=== PATIENT | male | born 1955 | race Caucasian/White ===

== ENCOUNTER 2016-07-21 11:03 | Inpatient (IN) | payer MEDICAID ==
[~2016-07-21] VITALS: Ht 175.3 cm; Wt 138.3 kg
--- NOTE | 2016-07-21 11:20 | NUR ---
PT BIB C/O BLOODY SPUTUM X5-6 MONTHS, ALSO C/O MILD SOB HOWEVER RESP APPEARS EVEN UNLABORED. DENIES PAIN. PT C/O ANXIETY REGARDING BLOODY SPUTUM AND REPORTS THAT HE DOES NOT GO TO A DOCTOR. SKIN WARM NONDIAPHORETIC. INER BED 09 ON MONITOR.
[2016-07-21 11:28] LABS: BASOPHILS % (AUTO) 0.2 % (0.0-2.0); EOSINOPHILS # (AUTO) 0.1 /CMM (0.0-0.7); EOSINOPHILS % (AUTO) 0.5 % (0.0-6.0); HEMATOCRIT 45 % (39-51); LYMPHOCYTES # (AUTO) 1.4 /CMM (0.8-4.8); LYMPHOCYTES % (AUTO) 13.6 % (20.0-44.0); MEAN CORPUSCULAR HEMOGLOBIN 27 PG (26.0-33.0); MEAN CORPUSCULAR HGB CONC 33 g/dl (31.0-36.0); MEAN CORPUSCULAR VOLUME 81 fL (80-96); MONOCYTES # (AUTO) 0.7 /CMM (0.1-1.30); MONOCYTES % (AUTO) 6.7 % (2.0-12.0); NEUTROPHILS # (AUTO) 8.3 /CMM (1.8-8.9); PLATELET COUNT (AUTO) 395 /CMM (150-450); RDW COEFFICIENT OF VARIATION 12.4 (11.5-15.0); RED BLOOD CELL COUNT(AUTO) 5.55 MIL/uL (4.5-6.0); WHITE BLOOD COUNT (AUTO) 10.5 K/uL (4.3-11.0)
[2016-07-21 11:37] LABS: CALCIUM, SERUM 9.1 mg/dL (8.5-10.1); POTASSIUM 4.3 mmol/L (3.5-5.1)
[2016-07-21 11:41] LABS: INR 1.03 (0.87-1.13); PROTHROMBIN TIME 10.7 SECS (9.5-12.7)
[2016-07-21 11:46] LABS: TROPONIN I 0.165 ng/mL (0.00-0.056)
[2016-07-21] MEDS ORDERED: ASPIRIN 325 MG TABLET ONE (13:25)
[2016-07-21] MEDS ORDERED: METOPROLOL TARTRATE 25 MG TABLET ONE (13:25)
[2016-07-21] MEDS ORDERED: ASPIRIN 325 MG TABLET PO ONE (13:30)
[2016-07-21] MEDS ORDERED: METOPROLOL TARTRATE 25 MG TABLET PO ONE (13:30)
--- NOTE | 2016-07-21 13:51 | NUR ---
PT RESTING QUIETLY IN BED, NAD NOTED, ALL NEEDS ATTENDED TO.
[2016-07-21] MEDS ORDERED: HYDROCODONE/APAP 5/325MG 1 EACH TABLET PO PRN (14:00)
[2016-07-21] MEDS ORDERED: MAG HYDROX/AL HYDROX/SIMETH 30 ML UDC PO PRN (14:00)
[2016-07-21] MEDS ORDERED: ALBUTEROL FS 2.5 MG/0.5 ML VIAL.NEB NEB PRN (14:00)
[2016-07-21] MEDS ORDERED: IPRATROPIUM NEB FS 0.5 MG/2.5 ML AMPUL.NEB NEB PRN (14:00)
[2016-07-21] MEDS ORDERED: MAGNESIUM HYDROXIDE 30 ML UDC PO PRN (14:00)
[2016-07-21] MEDS ORDERED: Z GUARD REMEDY 2 OZ OINT TP PRN (14:00)
[2016-07-21] MEDS ORDERED: MORPHINE SULFATE INJ 2 MG/ML DISP.SYRIN IV PRN (14:00)
[2016-07-21] MEDS ORDERED: ZOLPIDEM TARTRATE 5 MG TABLET PO PRN (14:00)
[2016-07-21] MEDS ORDERED: ONDANSETRON HCL/PF 4 MG/2 ML VIAL IVP PRN (14:00)
[2016-07-21] MEDS ORDERED: ACETAMINOPHEN 325 MG TABLET PO PRN (14:00)
[2016-07-21] MEDS ORDERED: AMLODIPINE BESYLATE 5 MG TABLET ONE (14:06)
[2016-07-21] MEDS ORDERED: AMLODIPINE BESYLATE 5 MG TABLET PO ONE (14:30)
--- NOTE | 2016-07-21 14:57 | NUR ---
REPORT GIVEN TO MIGUEL RN FOR ADMISSION
[2016-07-21] MEDS: ENOXAPARIN SODIUM 40 MG/0.4 ML DISP.SYRIN SQ SCH (15:00)
--- NOTE | 2016-07-21 15:18 | NUR ---
PT TRANSPORTED TO [facility] IN STABLE CONDITION VIA ACLS PROTOCOL
--- NOTE | 2016-07-21 17:18 | NUR ---
PRETTY ZAPATA RN LOVEGONZALEZX IS ALREADY ON HOLD AND WORKING ON GETTING CONSENTS SIGN
--- NOTE | 2016-07-21 19:15 | NUR ---
RN NOTE PT AAOX4, NO C/O CP OR SOB. BREATHING EVEN AND NON-LABORED ON ROOM AIR. TELE SHOWS SR WITH BBB. LFA INTACT AND PATENT. PT AWARE OF BEING NPO PAST MIDNIGHT FOR PROCEDURE IN AM. WILL OBTAIN CONSNT. FAMILY AT BEDSIDE, CALL LIGHT IN REACH. WILL CONT TO MONITOR.
[2016-07-21 20:00] VITALS: BP 141/80
[2016-07-21] MEDS: NITROGLYCERIN 30 GM TUBE TP SCH (21:13)
[2016-07-22] VITALS: BP 150/87
--- NOTE | 2016-07-22 01:57 | NUR ---
RN NOTE NO DISTRESS AT THIS TIME. PT RESTING WITH EYES CLOSED. WILL CONT TO MONITOR.
[2016-07-22 04:00] VITALS: BP 135/83
--- NOTE | 2016-07-22 06:09 | NUR ---
RN NOTE NO SIGNIFICANT CHANGES THIS SHIFT. PT AAOX4, NO C/O OF PAIN OR DISCOMFORT AT THIS TIME. BREATHING EVEN AND NON-LABORED ON ROOM AIR. LFA IAP H/L. HOB ELEVATED 30 DEGREES. PT NPO STATUS, FOR THORACENTESIS AND LUNG BX TODAY. CALL LIGHT IN REACH, WILL F/U WITH DAY SHIFT FOR FREEDOM. Addendum: 07/22/16 at 0612 by SHANTA SHELBY RN TELE SHOWS SR BBB WITH PVC'S
[2016-07-22 06:54] LABS: BASOPHILS % (AUTO) 0.3 % (0.0-2.0); EOSINOPHILS # (AUTO) 0.1 /CMM (0.0-0.7); EOSINOPHILS % (AUTO) 0.6 % (0.0-6.0); HEMATOCRIT 42 % (39-51); HEMOGLOBIN 13.8 g/dL (13.5-17.5); LYMPHOCYTES # (AUTO) 1.4 /CMM (0.8-4.8); LYMPHOCYTES % (AUTO) 15.1 % (20.0-44.0); MEAN CORPUSCULAR HEMOGLOBIN 27 PG (26.0-33.0); MEAN CORPUSCULAR HGB CONC 33 g/dl (31.0-36.0); MEAN CORPUSCULAR VOLUME 81 fL (80-96); MONOCYTES # (AUTO) 0.9 /CMM (0.1-1.30); MONOCYTES % (AUTO) 8.9 % (2.0-12.0); NEUTROPHILS # (AUTO) 7.2 /CMM (1.8-8.9); NEUTROPHILS % (AUTO) 75.1 % (43.0-81.0); PLATELET COUNT (AUTO) 389 /CMM (150-450); RDW COEFFICIENT OF VARIATION 12.8 (11.5-15.0); RED BLOOD CELL COUNT(AUTO) 5.21 MIL/uL (4.5-6.0); WHITE BLOOD COUNT (AUTO) 9.6 K/uL (4.3-11.0)
[2016-07-22 07:07] LABS: ALBUMIN 2.8 g/dL (3.4-5.0); BILIRUBIN,TOTAL 0.5 mg/dL (0.2-1.0); INR 0.97 (0.87-1.13); MAGNESIUM 1.7 mg/dL (1.8-2.4); PHOSPHORUS 3.4 mg/dL (2.5-4.9); POTASSIUM 3.8 mmol/L (3.5-5.1); PROTHROMBIN TIME 10.4 SECS (9.5-12.7); TROPONIN I 0.147 ng/mL (0.00-0.056)
--- NOTE | 2016-07-22 07:30 | NUR ---
MS NURSE'S OPENING NOTES RECEIVED REPORT FROM NIGHT NURSE. PATIENT RESTING IN BED WITH SIDES RAILS UP X2, VITAL SIGN STABLE, NO SIGNS OF DISTRESS. WILL CONTINUE TO MONITOR, ASSESS, AND IMPLEMENT PLAN OF CARE.
[2016-07-22 08:00] VITALS: BP 135/86
[2016-07-22] MEDS ORDERED: FENTANYL PF 250MCG/5ML AMPUL IV ONE (09:30)
[2016-07-22] MEDS ORDERED: NALOXONE PREFILLED SYRINGE 2 MG/2 ML SYRINGE IV ONE (09:30)
[2016-07-22] MEDS ORDERED: MIDAZOLAM HCL 5MG/ML VIAL 25 MG/5 ML VIAL IV ONE (09:30)
[2016-07-22] MEDS ORDERED: LIDOCAINE HCL/PF 1% 30 ML SDV ONE (10:13)
[2016-07-22] MEDS: PANTOPRAZOLE 40 MG TABLET.DR PO SCH (11:33)
[2016-07-22] MEDS: NITROGLYCERIN 30 GM TUBE TP SCH ×2 (11:33→21:55)
[2016-07-22] MEDS ORDERED: SECONDARY IV SET 1 EA INFUS.SET MC ONE (13:54)
[2016-07-22] MEDS ORDERED: IV NS 0.9% 250 ML IV ONE ×3 (13:54→13:59)
[2016-07-22] MEDS ORDERED: IV SET PRIMARY PUMP SET 1 EA INFUS.SET MC ONE (13:57)
[2016-07-22] MEDS: Magnesium 1GM/D5W 100ML PREMIX 100 ML IV SCH ×2 (14:09→15:23)
[2016-07-22 16:00] VITALS: BP 155/83
[2016-07-22 20:00] VITALS: BP 160/103
--- NOTE | 2016-07-22 20:00 | NUR ---
MS ELMA INITIAL NOTES SEEN PT IN BED AWAKE AND ALERT [place] AND [place] SPEAKING WITH HIS FAMILY AT THE BEDSIDE.STILL EATING SOME [place] FOODS. NO N/V NOTED. DENIES ANY PAIN OR ANY DISCOMFORT. AWARE OF HIS PROCEDURE LESLIE. KEPT HIM COMFORTABLE AT ALL TIMES. WILL CONTINUE TO MONITOR. PLACE CALL LIGHT AT REACH.
[2016-07-22] MEDS: ENOXAPARIN SODIUM 40 MG/0.4 ML DISP.SYRIN SQ SCH (21:00)
[2016-07-23] VITALS: BP 154/98
--- NOTE | 2016-07-23 | NUR ---
MEDICAL INSURANCE CLERK NOTES PT SLEEPING COMFORTABLY IN BED WITHOUT ANY DISCOMFORT. WILL CONTINUE TO MONITOR.
--- NOTE | 2016-07-23 06:55 | NUR ---
MS ELMA CLOSING NOTES PT AWAKE AND ALERT WATCHING MOVIE ON HIS CELLPHONE. DENIES ANY CHEST PAIN OR ANY DISCOMFORT. NO HEMOPTYSIS NOTED EIELEN THE NIGHT. STABLE ALL NIGHT . DUE MED GIVEN. AND PT AWARE OF HIS THORACENTESIS TODAY. CONSENT SIGNED. KEPT HIM COMFORTABLE AL THE TIME. WILL ENDORSE TO AM NURSE FOR CONTINUITY OF CARE. PLACE CALL LIGHT AT REACH.
--- NOTE | 2016-07-23 07:30 | NUR ---
RN MS NOTES PATIENT IN BED, ALERT AND ORIENTED, ABLE TO VERBALIZE NEEDS, NO EPISODE OF HEMOPTYSIS AT THIS TIME, NO COMPLAINT OF PAIN, PATIENT AWARE OF THORACENTESIS FOR TODAY, CONSENT PLACED IN CHART AND SIGNED, CALL LIGHT WITHIN REACH, SAFETY MEASURES IN PLACED, WILL CONTINUE TO MONITOR.
[2016-07-23 08:00] VITALS: BP 146/70
[2016-07-23 08:16] LABS: POTASSIUM 3.9 mmol/L (3.5-5.1)
[2016-07-23] MEDS: NITROGLYCERIN 30 GM TUBE TP SCH ×2 (09:59→21:51)
[2016-07-23] MEDS: PANTOPRAZOLE 40 MG TABLET.DR PO SCH (09:59)
--- NOTE | 2016-07-23 12:00 | NUR ---
RN MS NOTES PATIENT CAME BACK FROM US GUIDED THORACENTESIS, 600ML OF FLUID COLLECTED, AND SENT TO LAB, PATIENT'S VITALS 165/87, PULSE 93, NO COMPLAINT OF PAIN OR DISTRESS AT THIS TIME, WILL CONTINUE TO MONITOR.
[2016-07-23 16:00] VITALS: BP 165/95
[2016-07-23 16:22] LABS: TOTAL VOLUME,BODY FLUID 600 mL; WBC, BODY FLUID 3080 /cu. mm. (0-200)
[2016-07-23 16:23] LABS: MONOCYTES,BODY FLUID 1 %; POLYNUCLEAR, BODY FLUID 6 % (0-25)
[2016-07-23] MEDS ORDERED: *INSULIN REGULAR(HUMULIN R)HUM 100 UNIT/ML VIAL SQ PRN (16:30)
[2016-07-23] MEDS ORDERED: DEXTROSE 50%-WATER 50 ML DISP.SYRIN IV PRN (16:30)
--- NOTE | 2016-07-23 17:00 | NUR ---
RN MS NOTES RECEIVED NEW ORDERS FROM DR. ANTON HORTON. ORDER NOTED AND CARRIED OUT.
[2016-07-23] MEDS: INSULIN REGULAR, HUMAN 100 UNIT/ML 3 ML VIAL SQ PRN (17:48)
[2016-07-23] MEDS: BLOOD SUGAR DIAGNOSTIC 1 EACH STRIP IN SCH ×2 (17:54→21:46)
--- NOTE | 2016-07-23 19:20 | NUR ---
RN MS NOTES PATIENT IN STABLE CONDITION, NO DISTRESS AT THIS TIME, BLOOD SUGAR PRIOR TO DINNER WAS 366, 20 UNITS OF REGULAR INSULIN GIVEN, NO S/SX OF HYPO OR HYPERGLYCEMIA NOTED AT THIS TIME, FAMILY AT BEDSIDE, DENIES PAIN OR DISCOMFORT, SAFETY MEASURES WITHIN REACH, CALL LIGHT WITHINR EACH, ENDORSED TO EMPLOYMENT APPEALS EXAMINER FOR FREEDOM.
[2016-07-23 20:00] VITALS: BP 160/100
--- NOTE | 2016-07-23 20:00 | NUR ---
MS ELMA INITIAL NOTES SEEN PT IN BED AFTER GOT REPORT FROM AM NURSE CARMELA. DX OF HEMOPTYSIS. PT DENIES ANY CHEST PAIN OR ANY DISCOMFORT. AWARE THAT HE HAVE BLOOD SUGAR CHECKED THAT WILL SCHEDULE AT 10PM. PT STILL EATING FOOD FROM HIS THAT BROUGHT HERE. KEPT HIM COMFORTABLE AT ALL TIMES. WILL CONTINUE TO MONITOR. PLACE CALL LIGHT AT REACH. FAMILY AND FRIEND STILL AT THE BEDSIDE.
[2016-07-23] MEDS: ENOXAPARIN SODIUM 40 MG/0.4 ML DISP.SYRIN SQ SCH (21:51)
[2016-07-23] MEDS ORDERED: INSULIN DETEMIR 100 UNIT/ML CARTRIDGE SQ SCH (22:00)
--- NOTE | 2016-07-23 22:00 | NUR ---
MS ELMA NOTES BLOOD SUGAR CHECKED DONE 276, 10 UNITS OF LEVEMIR AND 6 UNITS OF REGULAR INSULIN GIVEN , SNACKS ALSO SERVED. NO SIGNS OF HYPER GLYCEMIA NOTED. ROUTINE MEDS ALSO GIVEN . WILL CONTINUE TO MONITOR. PLACE CALL LIGHT AT REACH.
[2016-07-24] MEDS: BLOOD SUGAR DIAGNOSTIC 1 EACH STRIP IN SCH ×2 (06:06→11:39)
--- NOTE | 2016-07-24 06:06 | NUR ---
GOAL UMPIRE NOTES PT REMAINS RESTING BUT AROUSES TO TOUCH, BLOOD SUGAR CHECKED 253, 12 UNITS OF INSULIN GIVEN ORDERED, NO SIGNS OF HYPO/HYPER GLYCEMIA NOTED. WILL CONTINUE TO MONITOR.
[2016-07-24] MEDS: INSULIN REGULAR, HUMAN 100 UNIT/ML 3 ML VIAL SQ PRN ×2 (06:08→11:40)
[2016-07-24 06:54] LABS: CALCIUM, SERUM 8.7 mg/dL (8.5-10.1); POTASSIUM 3.8 mmol/L (3.5-5.1)
--- NOTE | 2016-07-24 07:10 | NUR ---
MS GALLEY COOK CLOSING NOTES PT BACK TO SLEEP , RESPIRATION EVEN AND UNLABORED, NOT IN ANY ACUTE DISTRESS OR DISCOMFORT NOTED. SLEPT WELL AND STABLE EILEEN THE NIGHT. ALL DUE MEDS GIVEN AND ALL NEEDS MET. KEPT HIM WARM AND COMFORTABLE AT ALL TIMES. PLACE CALL LIGHT AT REACH. ENDORSE TO AM NURSE FOR CONTINUITY OF CARE.
--- NOTE | 2016-07-24 07:15 | NUR ---
RN MS NOTES PATIENT SITTING UP IN THE CHAIR, ALERT AND ORIENTED, DENIES PAIN OR DISCOMFORT, NO SIGN OF ANY DISTRESS, SAFETY MEASURES IN PLACED, CALL LIGHT WITHIN REACH, WILL CONTINUE TO MONITOR.
[2016-07-24 08:00] VITALS: BP 181/94
[2016-07-24] MEDS: PANTOPRAZOLE 40 MG TABLET.DR PO SCH (08:18)
[2016-07-24 08:19] VITALS: BP 181/94
[2016-07-24] MEDS: NITROGLYCERIN 30 GM TUBE TP SCH (08:19)
--- NOTE | 2016-07-24 14:00 | NUR ---
RN MS NOTES PATIENT SEEN BY DR. HORTON WITH ORDER TO DISCHARGE.
[2016-07-24] MEDS ORDERED: INSU100C10 SQ (14:02)
[2016-07-24] MEDS ORDERED: METF500T4 PO (14:02)
[2016-07-24] MEDS ORDERED: BLOO-296 MC (14:02)
[2016-07-24] MEDS ORDERED: LISI10TA59 PO (14:02)
[2016-07-24] MEDS ORDERED: INSU100I19 SQ (14:02)
[2016-07-24] MEDS ORDERED: BLOO-1281 MC (14:02)
--- NOTE | 2016-07-24 15:50 | NUR ---
RN MS NOTES PATIENT AND SPOUSE RECEIVED DISCHARGE INSTRUCTIONS, BOTH VERBALIZED UNDERSTANDING, PATIENT REQUESTED FOR SPOUSE TO SIGN PAPERWORKS, MEDICATION LIST PROVIDED, AND PRESCRIPTIONS FAXED TO PHARMACY OF CHOICE, PATIENT SKIN IS INTACT, REFUSED ALL VACCINATIONS, PIV HEPLOCK REMOVED WITH MINIMAL BLEEDING, SECURED WITH GAUZE AND TAPE, PATIENT LEFT THE FACILITY IN STABLE CONDITION.
== END 2016-07-24 17:25 | disposition home or self-care (01) | DRG 136 ==
LOC: ER 11:08 → TELE 14:15 → MED 07-22 10:22
PROVIDERS: ADMIT Family Medicine; ATTEND Family Medicine
PROC: 0BBC3ZX Excision of Right Upper Lung Lobe, Percutaneous Approach, Diagnostic (ICD-10-PCS; principal; 2016-07-22)
PROC: 0W993ZZ Drainage of Right Pleural Cavity, Percutaneous Approach (ICD-10-PCS; principal; 2016-07-22)
DX: C34.90 Malignant neoplasm of unspecified part of unspecified bronchus or lung (principal); I21.4 Non-ST elevation (NSTEMI) myocardial infarction; C78.1 Secondary malignant neoplasm of mediastinum; J90 Pleural effusion, not elsewhere classified; E44.1 Mild protein-calorie malnutrition; I31.3 Pericardial effusion (noninflammatory); E66.01 Morbid (severe) obesity due to excess calories; R16.2 Hepatomegaly with splenomegaly, not elsewhere classified; F17.210 Nicotine dependence, cigarettes, uncomplicated; R59.0 Localized enlarged lymph nodes; N62 Hypertrophy of breast; E11.9 Type 2 diabetes mellitus without complications; G47.33 Obstructive sleep apnea (adult) (pediatric); I11.9 Hypertensive heart disease without heart failure; Z68.42 Body mass index [BMI] 45.0-49.9, adult
CPT/HCPCS: 36415; 71010-TC; 71250-TC; 76942-TC; 77012-TC; 80048-TC; 80053-TC; 80061-TC; 82962-TC; 83735-TC; 84100-TC; 84484-TC; 85025-TC; 85610-TC; 85730-TC; 87070-TC; 87081-TC; 87102-TC; 87116; 87206; 88305-TC; 88312-TC; 88342; 89051-TC; 93307-TC; A4606; J1650; J1815; J2250; J2310; J3010; J3475; J3490; J7050; Z7610

== ENCOUNTER 2016-12-26 23:43 | Inpatient (IN) | payer MEDICAID ==
[~2016-12-26] VITALS: Ht 177.8 cm; Wt 81.6 kg
[~2016-12-26 23:43] MED LIST: BLOO-1281 MC; BLOO-296 MC; INSU100C10 SQ; INSU100I19 SQ; LISI10TA59 PO; METF500T4 PO
--- NOTE | 2016-12-27 02:01 | NUR ---
TO BED 3 AMBULATROY C/O UPPER BACK PAIN AND LOWER BACK PAIN, PAIN RESOLVED UPON ARRIVAL TO ER. PT AAOX4 NO ACUTE DISTRESS NOTED, RESP EVEN AND UNLABORED. PLACE PT ON CARDIAC MONITORING, CONTINUOUS POX. PENDING ER MD GAITAN.
--- NOTE | 2016-12-27 02:22 | NUR ---
BELLA MOREJON AT BEDSIDE TO KANDY ORDOÑEZ.
[2016-12-27 03:19] LABS: BASOPHILS % (AUTO) 0.2 % (0.0-2.0); EOSINOPHILS % (AUTO) 0.4 % (0.0-6.0); HEMATOCRIT 34 % (39-51); HEMOGLOBIN 11.1 g/dL (13.5-17.5); LYMPHOCYTES # (AUTO) 1.4 /CMM (0.8-4.8); LYMPHOCYTES % (AUTO) 34.5 % (20.0-44.0); MEAN CORPUSCULAR HEMOGLOBIN 26 PG (26.0-33.0); MEAN CORPUSCULAR HGB CONC 33 g/dl (31.0-36.0); MEAN CORPUSCULAR VOLUME 78 fL (80-96); MONOCYTES # (AUTO) 0.4 /CMM (0.1-1.30); NEUTROPHILS # (AUTO) 2.2 /CMM (1.8-8.9); NEUTROPHILS % (AUTO) 53.9 % (43.0-81.0); PLATELET COUNT (AUTO) 72 /CMM (150-450); RDW COEFFICIENT OF VARIATION 16.3 (11.5-15.0); RED BLOOD CELL COUNT(AUTO) 4.31 MIL/uL (4.5-6.0)
[2016-12-27 03:27] LABS: CALCIUM, SERUM 8.8 mg/dL (8.5-10.1); POTASSIUM 4.1 mmol/L (3.5-5.1)
[2016-12-27 03:29] LABS: INR 0.95 (0.87-1.13); PROTHROMBIN TIME 10.1 SECS (9.5-12.7)
[2016-12-27 03:33] LABS: ALBUMIN 3.3 g/dL (3.4-5.0); BILIRUBIN,DIRECT 0.1 mg/dL (0.0-0.2); BILIRUBIN,TOTAL 0.2 mg/dL (0.2-1.0); TOTAL PROTEIN, SERUM 8.2 g/dL (6.4-8.2)
[2016-12-27 03:35] LABS: TROPONIN I 0.231 ng/mL (0.00-0.056)
[2016-12-27] MEDS ORDERED: IV NS 0.9% 250 ML IV ONE (03:56)
[2016-12-27] MEDS ORDERED: IOHEXOL-350 100 ML VIAL IV ONE (03:56)
[2016-12-27] MEDS ORDERED: ASPIRIN 325 MG TABLET PO ONE (04:00)
--- NOTE | 2016-12-27 04:11 | NUR ---
PT TRANSPORTED TO RADIOLOGY FOR CT.
[2016-12-27 04:17] LABS: LYMPHOCYTES % (MANUAL) 32 % (16-48); MONOCYTES % (MANUAL) 8 % (0-11.0); NEUTROPHILS % (MANUAL) 60 (42-76)
--- NOTE | 2016-12-27 04:31 | NUR ---
PT BACK FROM RADIOLOGY. PENDING CT RESULT.
[2016-12-27] MEDS ORDERED: ASPIRIN 81 MG TAB.CHEW ONE (04:45)
--- NOTE | 2016-12-27 04:46 | NUR ---
PT REMAINS IN THE ER, OMNICEL SHOWS PT WAS DISCHARGE WHEN PULLING OUT ASPIRIN 162MG.
--- NOTE | 2016-12-27 05:01 | NUR ---
ER TALKING TO ANTON HORTON DNP REGARDING PT ADMISSION.
--- NOTE | 2016-12-27 05:42 | NUR ---
CALLED LAKHWINDER TO F/U CTA ABD AND PELVIS; CTA CHEST. WAITING FOR RESULTS.
--- NOTE | 2016-12-27 06:28 | NUR ---
CALLED ZANJERO FOR BED WHOM STATED SHE WOULD CALL BACK WHEN SHE OBTAINS A BED.
--- NOTE | 2016-12-27 07:00 | NUR ---
ASSIGNED TELE BED 321-1
--- NOTE | 2016-12-27 08:03 | NUR ---
GAVE REPORT TO KARENA VERGARA TELE DX NSTEMI DR ANTON HORTON ADMITTING
--- NOTE | 2016-12-27 08:21 | NUR ---
SERIALS LIBRARIAN NOTES RECEIVED PT FROM [place] NAQVI VIA [facility], NO COMPLAINT OF PAIN AT THIS TIME, NOT IN DISTRESS, ABLE TO AMBULATE FROM [facility] TO BED, ACCOMPANIED BY FAMILY MEMBER, ROOM SET UP ORIENTATION PROVIDED, VERBALIZED UNDERSTANDING, AWAITING ADMITTING ORDER FROM MD.
[2016-12-27 08:30] VITALS: BP 171/97
--- NOTE | 2016-12-27 09:51 | NUR ---
LOGGING EQUIPMENT MECHANIC NOTES PT IN BED, NO COMPLAINT OF PAIN, NOT IN DISTRESS, SEEN BY DR. SANTOS, PLAN OF CARE DISCUSSED WITH PT, VERBALIZED UNDERSTANDING, CALL LIGHT WITHIN REACH.
[2016-12-27] MEDS ORDERED: ZOLPIDEM TARTRATE 5 MG TABLET PO PRN (10:00)
[2016-12-27] MEDS ORDERED: MAG HYDROX/AL HYDROX/SIMETH 30 ML UDC PO PRN (10:00)
[2016-12-27] MEDS ORDERED: Z GUARD REMEDY 2 OZ OINT TP PRN (10:00)
[2016-12-27] MEDS ORDERED: ONDANSETRON HCL/PF 4 MG/2 ML VIAL IVP PRN (10:00)
[2016-12-27] MEDS ORDERED: MAGNESIUM HYDROXIDE 30 ML UDC PO PRN (10:00)
[2016-12-27] MEDS ORDERED: ACETAMINOPHEN 325 MG TABLET PO PRN (10:00)
[2016-12-27] MEDS ORDERED: HYDROCODONE/APAP 5/325MG 1 EACH TABLET PO PRN (10:00)
[2016-12-27] MEDS ORDERED: LISINOPRIL (10MG) 10 MG TABLET PO SCH (10:30)
[2016-12-27] MEDS ORDERED: INSULIN REGULAR, HUMAN 100 UNIT/ML 3 ML VIAL SQ PRN (10:30)
[2016-12-27] MEDS ORDERED: DEXTROSE 50%-WATER 50 ML DISP.SYRIN IV PRN (10:30)
[2016-12-27] MEDS ORDERED: *INSULIN REGULAR(HUMULIN R)HUM 100 UNIT/ML VIAL SQ PRN (10:30)
[2016-12-27 11:52] VITALS: BP 149/92
[2016-12-27] MEDS ORDERED: BLOOD SUGAR DIAGNOSTIC 1 EACH STRIP VI SCH (12:00)
--- NOTE | 2016-12-27 14:29 | NUR ---
ELECTION SUPERVISOR NOTES PT AWAKE, IN BED, NO FURTHER COMPLAINT OF PAIN, NOT IN DISTRESS, CALL LIGHT WITHIN REACH, DISCHARGE ORDER GIVEN BY DR. SANTOS, DISCHARGE AND MEDICATION INSTRUCTIONS PROVIDED TO PT, VERBALIZED UNDERSTANDING, BELONGING LIST SIGNED, PICKED UP BY FAMILY MEMBER IN STABLE CONDITION.
[2016-12-27] MEDS ORDERED: METFORMIN 500 MG TABLET PO SCH (17:00)
[2016-12-27] MEDS ORDERED: INSULIN DETEMIR 100 UNIT/ML CARTRIDGE SQ SCH (22:00)
[2016-12-28] MEDS ORDERED: PANTOPRAZOLE 40 MG TABLET.DR PO SCH (07:30)
== END 2016-12-27 14:25 | disposition home or self-care (01) | DRG 347 ==
LOC: ER 23:47 → TELE 12-27 07:05
PROVIDERS: ADMIT Nurse Practitioner Acute Care; ATTEND Nurse Practitioner Acute Care
DX: M54.5 Low back pain (principal); I31.3 Pericardial effusion (noninflammatory); C34.90 Malignant neoplasm of unspecified part of unspecified bronchus or lung; T45.1X5A Adverse effect of antineoplastic and immunosuppressive drugs, initial encounter; I10 Essential (primary) hypertension; E11.9 Type 2 diabetes mellitus without complications; K82.8 Other specified diseases of gallbladder; Y92.009 Unspecified place in unspecified non-institutional (private) residence as the place of occurrence of the external cause; K80.20 Calculus of gallbladder without cholecystitis without obstruction
CPT/HCPCS: 36415; 71010-TC; 80048-TC; 80076-TC; 82962-TC; 83690-TC; 84484-TC; 85025-TC; 85378-TC; 85730-TC; 87081-TC; A4606; J1815; J7050; Q9967; Z7610